=== PATIENT | female | born 1940 | race Caucasian/White ===

== ENCOUNTER 2018-04-20 14:14 | Emergency (ER) | payer MEDICARE ==
[~2018-04-20] VITALS: Ht 147.3 cm; Wt 62.7 kg
[2018-04-20] MEDS ORDERED: ATOR1TAB19 PO (14:22)
[2018-04-20] MEDS ORDERED: ASPI81TA85 PO (14:22)
[2018-04-20] MEDS ORDERED: LOSA50TA88 PO (14:22)
[2018-04-20] MEDS ORDERED: LEVO112T2 PO (14:22)
[2018-04-20] MEDS ORDERED: SERT-155 PO (14:22)
[2018-04-20] MEDS ORDERED: FURO40TA2 PO (14:22)
--- NOTE | 2018-04-20 16:00 | REP ---
CT Head without contrast HISTORY: Fall COMPARISON: None Areas of decreased attenuation are present in the periventricular white matter. This represents small-vessel ischemic disease. There is no intraparenchymal hemorrhage, acute infarct, mass or midline shift. The ventricular system and cortical sulci are dilated consistent with minimal volume loss. There is no extra cerebral collection. There is no fracture. The visualized sinuses are clear. IMPRESSION: 1. Small vessel ischemic disease. 2. Minimal volume loss. Electronically Signed by Conrado Duron MD 04/20/2018 03:51 P
[2018-04-20] MEDS ORDERED: NEOSPORIN OINT 0.9 GM PKT (FLOOR STOCK) TOP ONE (16:15)
[2018-04-20] MEDS ORDERED: ACETAMINOPHEN TAB 650MG DOSE (2X325MG) PO ONE (16:15)
--- NOTE | 2018-04-20 16:48 | REP ---
MAXILLOFACIAL CT WITHOUT CONTRAST: HISTORY: Fall. The sinuses are clear. The osteomeatal units are patent. The middle and inferior nasal turbinates are partially paradoxical. There is francheska bullosa of the middle nasal turbinates. There is mild deviation of the nasal septum to the left. The cribriform plate, medial saeed of the orbits and optic canals are intact. The carotid canals form a segment of the posterolateral saeed of the sphenoid sinus. There is no fracture. IMPRESSION:There is no acute or chronic sinusitis. Electronically Signed by Conrado Duron MD 04/20/2018 05:02 P
--- NOTE | 2018-04-20 17:01 | REP ---
Left hand four views History: Fall There is no acute fracture or dislocation. The joint spaces are normal in appearance. Impression: There is no acute fracture or dislocation. Electronically Signed by Conrado Duron MD 04/20/2018 04:52 P
[2018-04-20 17:05] VITALS: BP 135/64
== END 2018-04-20 17:12 | disposition home or self-care (01) ==
LOC: M ED 14:14
DX: S00.83XA Contusion of other part of head, initial encounter (principal); S00.31XA Abrasion of nose, initial encounter; S60.222A Contusion of left hand, initial encounter; W01.198A Fall on same level from slipping, tripping and stumbling with subsequent striking against other object, initial encounter; Y92.410 Unspecified street and highway as the place of occurrence of the external cause; I67.82 Cerebral ischemia; I10 Essential (primary) hypertension; E11.9 Type 2 diabetes mellitus without complications; E03.9 Hypothyroidism, unspecified; Z91.041 Radiographic dye allergy status; Z79.899 Other long term (current) drug therapy; Z79.82 Long term (current) use of aspirin

== ENCOUNTER → 2018-12-04 | Outpatient (CLI) | payer MEDICARE ==
[~2018-12-04] MED LIST: ASPI81TA85 PO; ATOR1TAB19 PO; FURO40TA2 PO; LEVO112T2 PO; LOSA50TA88 PO; SERT-155 PO
--- NOTE | 2018-12-07 00:09 | SLEEPCENT ---
DATE OF PROCEDURE: 12/04/2018 ORDERED BY: Anthony Sin PA-C Nocturnal polysomnography was performed for evaluation of sleep physiology in this patient with a history of excessive somnolence and nonrestorative sleep who has comorbidities of hypertension and acid reflux disease. 8 hours and 47 minutes of data were reviewed. There were 428 minutes of sleep identified. Sleep latency was short at 4 minutes. Rapid eye movement (REM) latency was normal at 91.5 minutes, sleep architecture was somewhat fragmented but progression was maintained. There were three REM cycles. Overall sleep efficiency was 82.1%. The patient's electrocardiogram showed a sinus rhythm with premature ventricular contractions (PVCs), average heart rate 60 beats per minute. EEG showed reasonably normal waveforms for awake and sleep. There were 299 respiratory events identified of 10 seconds in duration or greater for an apnea-hypopnea index of 41.9. The events were both obstructive in central, 84 central and mixed apneas were scored. The events were not exclusive to sleep stage nor body posture. Arousals from respiratory events occurred 16.1 times per hour and oxygen desaturations into the 80s were seen. There was some minor limb activity but arousals from limb events were few. IMPRESSION: Severe, possibly complex obstructive sleep apnea syndrome (G47.33, G47.31). Apnea-hypopnea index 41.9. RECOMMENDATIONS: The patient should be encouraged to return to the sleep disorder center for pressure therapy. In the interim, alcohol and sedative avoidance should be practiced and caution exercised during the operation of motor vehicles.
== END ==
LOC: M SLEEP 19:37
PROVIDERS: ATTEND Physician Assistant
DX: G47.30 Sleep apnea, unspecified (principal)

== ENCOUNTER → 2019-01-07 | Outpatient (CLI) | payer MEDICARE ==
[~2019-01-07] MED LIST changes: -SERT-155 PO; +SERT50TA29 PO
--- NOTE | 2019-01-08 14:20 | SLEEPCENT ---
DATE OF PROCEDURE: 01/07/2019 ORDERED BY: RUTHANN Flynn Nocturnal polysomnography was performed for the titration of pressure therapy in this patient with obstructive sleep apnea syndrome. Apnea-hypopnea index 41.9. For testing a ResMed AirFit F20 full-face mask of small size was used; 4 cm of water pressure were applied to the circuit and the lights were extinguished. 8 hours and 3 minutes of data were reviewed. There were 384.5 minutes of sleep identified. Sleep latency was short at 9.5 minutes. Rapid eye movement (REM) latency was short at 72 minutes. Sleep architecture was good with 3 REM cycles. Overall sleep efficiency was 80.6%. The electrocardiogram showed a sinus rhythm with premature ventricular contractions (PVCs). Average heart rate 63 beats per minute. Electroencephalogram (EEG) showed normal waveforms for awake and sleep. Respiratory events were best palliated with CPAP at a pressure of +9. There was some activity in the limb leads noted. Limb movement arousal index was 9.8. IMPRESSION: Obstructive sleep apnea syndrome (G47.33). RECOMMENDATIONS: Nightly use of pressure therapy 9 cm of water.
== END ==
LOC: M SLEEP 19:40
PROVIDERS: ATTEND Physician Assistant
DX: G47.33 Obstructive sleep apnea (adult) (pediatric) (principal)

== ENCOUNTER → 2019-03-20 | Outpatient (REF) | payer MEDICARE ==
[2019-03-21 18:19] LABS: PERCENT SATURATION 31.2 % (13.2-45.0)
== END ==
LOC: M LAB REF 16:37
PROVIDERS: ATTEND Internal Medicine
DX: D64.9 Anemia, unspecified (principal)

== ENCOUNTER → 2019-07-23 | Outpatient (REF) | payer MEDICARE ==
[2019-07-24 03:08] LABS: VITAMIN B12 LEVEL 681 PG/ML (247-911)
[2019-07-24 15:19] LABS: FERRITIN 90 NG/ML (8-252); IRON (FE) 68 UG/DL (50-170); PERCENT SATURATION 22.3 % (13.2-45.0); TOTAL IRON BINDING CAPACITY 305 UG/DL (250-450)
== END ==
LOC: M LAB REF 16:03
PROVIDERS: ATTEND Internal Medicine
DX: R41.3 Other amnesia (principal); D64.9 Anemia, unspecified; Z11.59 Encounter for screening for other viral diseases

== ENCOUNTER → 2020-02-01 | Outpatient (CLI) | payer MEDICARE ==
[~2020-02-01] MED LIST changes: -ASPI81TA85 PO; +ASPI81TA86 PO; +LEVO100T5 PO; +OMEP-221 PO
== END ==
LOC: M LABSMTC 09:34
PROVIDERS: ATTEND Anesthesiology
DX: Z01.812 Encounter for preprocedural laboratory examination (principal); Z20.828 Contact with and (suspected) exposure to other viral communicable diseases

== ENCOUNTER 2020-02-06 06:45 | Day surgery (SDC) | payer MEDICARE ==
[~2020-02-06] VITALS: Ht 147.3 cm; Wt 62.3 kg
[2020-02-06] MEDS ORDERED: NS 1,000 ML IV ONE (07:00)
[2020-02-06] MEDS ORDERED: LIDOCAINE 2% 100MG/5ML SDV (FOR ANES.) As Ordered ONE (07:33)
[2020-02-06] MEDS ORDERED: propofoL 200 MG/20 ML VIAL As Ordered ONE (07:33)
--- NOTE | 2020-02-06 07:58 | ROOR ---
Patient Name: Wendy Naik Procedure Date: 02/06/2020 7:35 AM Date of : 1940 Age: 79 Room: [facility] Gender: Female Note Status: Finalized Procedure: Colonoscopy Indications: High risk colon cancer surveillance: Personal history of colonic polyps, Family history of colon cancer in a distant relative Providers: Flip FERGUSON MD Referring MD: Amanda BROWNE MD Requesting Provider: Medicines: Monitored Anesthesia Care Complications: No immediate complications. Procedure: Pre-Anesthesia Assessment: - The heart rate, respiratory rate, oxygen saturations, blood pressure, adequacy of pulmonary ventilation, and response to care were monitored throughout the procedure. The Colonoscope was introduced through the anus and advanced to the terminal ileum, with identification of the appendiceal orifice and IC valve. The colonoscopy was performed without difficulty. The patient tolerated the procedure well. The quality of the bowel preparation was good. Findings: The perianal and digital rectal examinations were normal. Small Internal Hemorrhoids. Retroflexion in the right colon was performed. The entire examined colon appeared normal on direct and retroflexion views. Impression: - Small Internal Hemorrhoids. - The entire examined colon is normal on direct and retroflexion views. - No specimens collected. Recommendation: - No repeat screening colonoscopy. - Repeat colonoscopy PRN only. Procedure Code(s): --- Professional --- 09382, Colonoscopy, flexible; diagnostic, including collection of specimen(s) by brushing or washing, when performed (separate procedure) Diagnosis Code(s): --- Professional --- Z80.0, Family history of malignant neoplasm of digestive organs Z86.010, Personal history of colonic polyps CPT copyright 2019 [employer]. All rights reserved. The codes documented in this report are preliminary and upon water taxi driver review may be revised to meet current compliance requirements. Flip Ferguson MD Flip FERGUSON MD 02/06/2020 7:57:42 AM Electronically signed by Flip FERGUSON MD Number of Addenda: 0 Note Initiated On: 02/06/2020 7:35 AM Estimated Blood Loss: Estimated blood loss: none.
[2020-02-06 08:15] VITALS: BP 148/64
== END 2020-02-06 08:22 | disposition home or self-care (01) ==
LOC: M OPP 06:45
PROVIDERS: ATTEND Internal Medicine Gastroenterology
DX: Z12.11 Encounter for screening for malignant neoplasm of colon (principal); Z86.010 Personal history of colon polyps; Z80.0 Family history of malignant neoplasm of digestive organs; K64.8 Other hemorrhoids; I10 Essential (primary) hypertension; E78.5 Hyperlipidemia, unspecified; E03.9 Hypothyroidism, unspecified; K44.9 Diaphragmatic hernia without obstruction or gangrene; R12 Heartburn; M19.90 Unspecified osteoarthritis, unspecified site; K21.9 Gastro-esophageal reflux disease without esophagitis; F41.9 Anxiety disorder, unspecified; F32.9 Major depressive disorder, single episode, unspecified; G47.33 Obstructive sleep apnea (adult) (pediatric); Z91.041 Radiographic dye allergy status; Z79.82 Long term (current) use of aspirin; Z79.899 Other long term (current) drug therapy; Z83.3 Family history of diabetes mellitus; Z82.49 Family history of ischemic heart disease and other diseases of the circulatory system; Z80.3 Family history of malignant neoplasm of breast; Z80.51 Family history of malignant neoplasm of kidney